=== PATIENT | female | born 1945 ===

== ENCOUNTER → 2018-05-11 21:15 | Outpatient (REF) | payer MEDICARE, SELFPAY ==
[2018-05-11 21:18] LABS: Bacteria Urine None Seen
[2018-05-11 21:31] LABS: Appearance Urine UA CLEAR; Bilirubin Urine UA NEGATIVE (NEGATIVE); Color Urine UA YELLOW; Glucose Urine UA NEGATIVE (Negative); Ketones Urine UA NEGATIVE (NEGATIVE); Leukocyte Esterase Urine UA TRACE (NEGATIVE); Nitrite Urine UA NEGATIVE (Negative); Occult Blood Urine UA TRACE-INTACT (Negative); Protein Urine UA NEGATIVE (Negative); Specific Gravity Urine UA >=1.030 (1.000-1.035); Urobilinogen Urine UA 0.2 E.U./dL (0.2)
[2018-05-11 21:56] LABS: Add Manual Diff / Slide Review NO; Basophils Absolute Auto 0 /uL (0-100); Basophils Percent Auto 0.3 % (0-2); Eosinophils Absolute Auto 100 /uL (0-450); Eosinophils Percent Auto 1.8 % (2-4); Hematocrit 42.5 % (36-46); Hemoglobin 14.1 g/dL (12.0-16.0); Lymphocytes Absolute Auto 2300 /uL (1100-4500); Lymphocytes Percent Auto 38.9 % (25-40); Mean Corpuscular HGB Conc 33.2 % (30-36); Mean Corpuscular Hemoglobin 30.7 PG (26-34); Mean Corpuscular Volume 92.5 fL (80-100); Monocytes Absolute Auto 400 /uL (0-900); Monocytes Percent Auto 6.6 % (3-14); Neutrophils Absolute Auto 3000 /uL (1500-7000); Neutrophils Percent Auto 52.4 % (50-75); Platelet Count 359 X10^3/uL (150-400); Red Cell Distribution Width 14.2 % (11.6-14.8); White Blood Cell Count 5.8 X10^3/uL (4.5-11.0)
[2018-05-11 22:07] LABS: Alanine Aminotransferase 28 IU/L (9-52); Albumin 4.7 g/dL (3.5-5.0); Albumin Globulin Ratio 1.5 (1.0-2.8); Alkaline Phosphatase 74 U/L (38-126); Aspartate Aminotransferase 25 IU/L (14-36); Blood Urea Nitrogen 22 mg/dL (7-17); Calcium 10.2 mg/dL (8.4-10.2); Carbon Dioxide 25 mmol/L (22-32); Chloride 103 mmol/L (98-107); Cholesterol 289 mg/dL (140-199); Estimated Glomerular Filt Rate 54.5 mL/min (>60); Globulin 3.1 g/dL (1.7-4.1); Glucose 81 mg/dL (80-110); HDL Cholesterol 60 mg/dL (40-60); HEMOLYSIS < 15 (0-50); LDL Cholesterol Calculated 203 mg/dL (<100); Potassium 4.9 mmol/L (3.4-5.1); Sodium 141 mmol/L (137-145); Total Protein 7.8 g/dL (6.3-8.2); Triglycerides 132 mg/dL (35-150)
[2018-05-11 22:11] LABS: High Sensitivity CRP - Cardiac 3.2 mg/L (1.0-3.0)
[2018-05-11 22:12] LABS: RBC Urine 0-1/HPF (0-5/HPF); Squamous Epithelial Cell Urine 1-5 /HPF; WBC Urine 0-1/HPF (0-5/HPF)
[2018-05-11 22:40] LABS: Thyroid Stimulating Hormone 2.03 uIU/mL (0.47-4.68)
[2018-05-11 23:04] LABS: Erythrocyte Sedimentation Rate 7 MM/HR (0-20)
[2018-05-13 15:20] LABS: Progesterone 3.8 ng/mL
[2018-05-16 18:43] LABS: Estrogen 126.7 pg/mL
== END ==
LOC: LAB 21:15
PROVIDERS: Visit Provider Naturopath
DX: E78.00 Pure hypercholesterolemia, unspecified (principal); N95.1 Menopausal and female climacteric states; R35.0 Frequency of micturition; Z86.79 Personal history of other diseases of the circulatory system; G47.9 Sleep disorder, unspecified
CPT/HCPCS: 36415; 80053; 80061; 81001; 82672; 84144; 84443; 85025; 85651; 86140